=== PATIENT | female | born 1990 | race Caucasian/White ===

== ENCOUNTER 2020-07-11 06:05 | Emergency (ER) | payer BC ==
[2020-07-11 10:28] LABS: Absolute Lymphocytes (CBC) 1.4 K/uL (0.7-4.9); Basophils % 0.1 % (0-1.3); Hematocrit 36.9 % (36.0-45.0); Lymphocytes % 17.9 % (15.3-44.8); MPV 8.5 fL (7.6-11.3); RBC Red Blood Cell Count 4.29 M/uL (3.86-4.86)
[2020-07-11] MEDS ORDERED: NA CHLORIDE 0.9% 500 ML ONE (10:41)
[2020-07-11] MEDS ORDERED: DICYCLOMINE HCL 10 MG CAP ONE (10:41)
[2020-07-11 10:48] LABS: ALT/SGPT 18 U/L (12-78); AST/SGOT 13 U/L (15-37); Albumin 3.5 g/dL (3.4-5.0); Alkaline Phosphatase 107 U/L (45-117); BUN Blood Urea Nitrogen 11 mg/dL (7-18); Bicarbonate 28 mmol/L (21-32); Bilirubin Direct < 0.1 mg/dL (0-0.2); Bilirubin Total 0.3 mg/dL (0.2-1.0); Glucose Level 113 mg/dL (74-106); Lipase 92 U/L (73-393); Potassium 3.6 mmol/L (3.5-5.1); Protein, Total 7.6 g/dL (6.4-8.2); Sodium Level 140 mmol/L (136-145)
[2020-07-11 10:53] LABS: HCG, Quantitative < 1 mIU/mL (1-3)
--- NOTE | 2020-07-11 11:24 | RAD REPORT ---
EXAM DESCRIPTION: CT - Abdomen Pelvis W Contrast - 07/11/2020 11:13 am CLINICAL HISTORY: Abdominal pain COMPARISON: none. TECHNIQUE: Computed axial tomography of the abdomen pelvis was obtained. 100 cc Isovue-300 was admin istered intravenously. Oral contrast was not requested which limits evaluation of bowel. All CT scans are performed using dose optimization technique as appropriate and may include automated exposure control or mA/KV adjustment according to patient size. FINDINGS: The liver, spleen, pancreas, adrenal and kidneys appear unremarkable. There is no evidence of diverticulitis. Normal appendix. Small umbilical hernia contains fat. Mild diastases of the rectus abdominis muscles. No adnexal mass IMPRESSION: No acute abnormality is displayed.
[2020-07-11 11:32] LABS: Urine Blood NEGATIVE (NEG); Urine Glucose NEGATIVE (NEG); Urine Protein NEGATIVE (NEG); Urine Specific Gravity >1.030 (1.005-1.030)
--- NOTE | 2020-07-11 11:36 | ER ---
Nurse's Notes [facility] Name: Shira Kerns Age: 30 yrs Sex: Female : 1990 Arrival Date: 07/11/2020 Time: 06:09 Bed 26 Private MD: Diagnosis: Lower abdominal pain, unspecified Presentation: 07/11 06:36 Chief complaint: Patient states: Bilateral lower abdominal pain for four days, reports sg heavy vaginal bleeding on the Jun with worsening cramps, reports hx of ectopic is concerned this could be repeating. no other symptoms reported for triage at this [facility]. Coronavirus screen: Client denies travel out of the [place] in the last 14 days. Ebola Screen: Patient negative for fever greater than or equal to 101.5 degrees Fahrenheit, and additional compatible Ebola Virus Disease symptoms Patient denies exposure to infectious person. Patient denies travel to an Ebola-affected area in the 21 days before illness onset. No symptoms or risks identified at this time. Initial Sepsis Screen: Does the patient meet any 2 criteria? No. Patient's initial sepsis screen is negative. Does the patient have a suspected source of infection? Yes: Acute abdominal pain. Risk Assessment: Do you want to hurt yourself or someone else? Patient reports no desire to harm self or others. Onset of symptoms was July 11, 2020. Care prior to arrival: None. Transition of care: patient was not received from another setting of care. 06:36 Acuity: SIRI 3 sg 06:36 Method Of Arrival: Ambulatory sg Triage Assessment: 11:00 General: Behavior is calm, cooperative. 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 - Social history:: Smoking status: . Screenin:49 Abuse screen: Denies threats or abuse. Denies injuries from another. Nutritional ec1 screening: No deficits noted. Tuberculosis screening: No symptoms or risk factors identified. Fall Risk No fall in past 12 months (0 pts). Secondary diagnosis (15 points) IV access (20 points). Ambulatory Aid- None/Bed Rest/Nurse Assist (0 pts). Gait- Normal/Bed Rest/Wheelchair (0 pts) Mental Status- Oriented to own ability (0 pts). Assessment: 10:17 General: Appears in no apparent distress. uncomfortable. Pain: Complains of pain in ec1 abdomen Pain currently is 1 out of 10 on a pain scale. Neuro: Level of Consciousness is awake, alert, obeys commands. Cardiovascular: Patient's skin is warm and dry. Respiratory: Airway is patent Respiratory effort is even, unlabored. GI: Abdomen is round obese, Bowel sounds present X 4 quads. Abd is soft X 4 quads Abdomen is tender to palpation in left upper quadrant Reports lower abdominal pain, upper abdominal pain, diarrhea, nausea. : Reports vaginal bleeding that is for last 3-4 days, has stopped. EENT: No deficits noted. Derm: No deficits noted. Musculoskeletal: No deficits noted. Vital Signs: 06:36 BP 112 / 73; Pulse 69; Resp 16; Temp 97.9; Pulse Ox 100% on R/A; Pain 8/10; sg 10:08 BP 112 / 67; Pulse 92; Resp 16 S; Pulse Ox 99% on R/A; Pain 1/10; ec1 ED Course: 06:09 Patient arrived in ED. do 06:36 Arm band placed on. sg 07:27 Triage completed. sg 09:28 Dangelo Vera PA is PHCP. cp 09:28 Ronnell Pacheco MD is Attending Physician. cp 09:55 Giselle Mcadams, FRANCINE is Primary Nurse. ec1 10:17 Patient has correct armband on for positive identification. Placed in gown. Bed in low ec1 position. Side rails up X2. 10:17 Inserted saline lock: 18 gauge in right upper arm, using aseptic technique. Blood ec1 collected. 11:[address] via wheelchair. ec1 11:13 CT Abd/Pelvis - IV Contrast Only In Process Unspecified. EDMS 11:21 Patient taken to an exam room, via wheelchair. ec1 11:49 No provider procedures requiring assistance completed. ec1 11:55 IV discontinued, intact, bleeding controlled. ec1 Administered Medications: 10:29 Drug: Bentyl 20 mg Route: PO; ec1 11:30 Follow up: Response: Pain is decreased ec1 10:29 Drug: NS 0.9% 500 ml Route: IV; Rate: bolus; Site: right upper arm; ec1 11:00 Follow up: Response: No adverse reaction; IV Status: Completed infusion; IV Intake: ec1 500ml Intake: 11:00 IV: 500ml; Total: 500ml. ec1 Outcome: 11:36 Discharge ordered by . cp 11:55 Discharged to home ambulatory. ec1 11:55 Condition: good 11:55 Discharge instructions given to patient, Instructed on discharge instructions, Demonstrated understanding of instructions, follow-up care, medications, Prescriptions given X 1. 11:57 Patient left the ED. ec1 Signatures: Dispatcher [employer] EDSinan Weller, RN RN sg Dangelo Vera PA PA cp [place], Danielle do Cruz, Emily RN RN ec1 Corrections: (The following items were deleted from the chart) 10:30 10:17 GI: Abdomen is round obese, Reports lower abdominal pain, upper abdominal pain, ec1 diarrhea, nausea, ec1
--- NOTE | 2020-07-11 11:36 | EDPHYS ---
Physician Documentation [facility] Name: Shira Kerns Age: 30 yrs Sex: Female : 1990 Arrival Date: 07/11/2020 Time: 06:09 Bed 26 Private MD: ED Physician Ronnell Pacheco HPI: 07/11 09:30 This 30 yrs old Female presents to ER via Ambulatory with complaints of cp Abdominal Pain. 09:30 The patient presents with abdominal pain in the lower abdomen. Onset: The cp symptoms/episode began/occurred 4 day(s) ago. The symptoms do not radiate. Associated signs and symptoms: Pertinent positives: diarrhea, Pertinent negatives: anorexia, constipation, dysuria, fever, vaginal discharge, active vaginal bleeding. The symptoms are described as crampy. 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 - Social history:: Smoking status: . ROS: 09:35 Eyes: Negative for injury, pain, redness, and discharge. cp 09:35 Constitutional: Negative for body aches, chills, fever, poor PO intake. 09:35 ENT: Negative for ear pain, sore throat, difficulty swallowing, difficulty handling secretions. 09:35 Cardiovascular: Negative for chest pain, palpitations. 09:35 Respiratory: Negative for cough, shortness of breath, wheezing. 09:35 Abdomen/GI: Positive for diarrhea, abdominal cramps, Negative for vomiting, constipation, anorexia, black/tarry stool, rectal bleeding. 09:35 Back: Negative for radiated pain. 09:35 : Negative for urinary symptoms, vaginal bleeding, vaginal discharge. Exam: 09:40 Constitutional: The patient appears in no acute distress, alert, awake, non-toxic, well cp developed, well nourished. 09:40 Head/Face: Normocephalic, atraumatic. cp 09:40 Eyes: Periorbital structures: appear normal, Conjunctiva: normal, no exudate, no injection, Sclera: no appreciated abnormality, Lids and lashes: appear normal, bilaterally. 09:40 ENT: External ear(s): are unremarkable, Nose: is normal, Mouth: Lips: moist, Oral mucosa: pink and intact, moist, Posterior pharynx: Airway: no evidence of obstruction, patent. 09:40 Chest/axilla: Inspection: normal, Palpation: is normal, no crepitus, no tenderness. 09:40 Cardiovascular: Rate: normal, Rhythm: regular. 09:40 Respiratory: the patient does not display signs of respiratory distress, Respirations: normal, no use of accessory muscles, no retractions, labored breathing, is not present, Breath sounds: are clear throughout, no decreased breath sounds, rhonchi, no stridor, no wheezing. 09:40 Abdomen/GI: Inspection: abdomen appears normal, Bowel sounds: active, all quadrants, Palpation: soft, in all quadrants, moderate abdominal tenderness, in the right lower quadrant and left lower quadrant, rebound tenderness, is not appreciated, involuntary guarding, is not appreciated. 09:40 Back: CVA tenderness, is absent. 09:40 Skin: cellulitis, is not appreciated, no rash present. Vital Signs: 06:36 BP 112 / 73; Pulse 69; Resp 16; Temp 97.9; Pulse Ox 100% on R/A; Pain 8/10; sg 10:08 BP 112 / 67; Pulse 92; Resp 16 S; Pulse Ox 99% on R/A; Pain 1/10; ec1 MDM: 09:39 Patient medically screened. cp 10:00 Differential diagnosis: appendicitis, Ectopic , gastritis, Pelvic Inflammatory cp Disease, Pyelonephritis, Ureterolithiasis, urinary tract infection. 11:35 Data reviewed: vital signs, nurses notes, lab test result(s), radiologic studies, CT cp scan, and as a result, I will discharge patient. 11:35 Counseling: I had a detailed discussion with the patient and/or guardian regarding: the cp historical points, exam findings, and any diagnostic results supporting the discharge/admit diagnosis, lab results, radiology results, to return to the emergency department if symptoms worsen or persist or if there are any questions or concerns that arise at home. 11:35 Special discussion: Based on the patient's Hx, exam, and Dx evaluation, there is no cp indication for emergent surgery or inpatient Tx. It is understood by the patient/guardian that if the Sx's persist or worsen they need to return immediately for re-evaluation. 07/11 09:22 Order name: Urine Dipstick-Ancillary (obtain specimen); Complete Time: 11:07 cp 07/11 09:22 Order name: Urine Test (obtain specimen); Complete Time: 11:13 cp 07/11 09:41 Order name: Basic Metabolic Panel cp 07/11 09:41 Order name: CBC with Diff cp 07/11 09:41 Order name: Hepatic Function; Complete Time: 10:57 cp 07/11 09:41 Order name: Lipase; Complete Time: 10:57 cp 07/11 09:41 Order name: IV Saline Lock; Complete Time: 10:17 cp 07/11 09:41 Order name: Labs collected and sent; Complete Time: 10:17 cp 07/11 09:41 Order name: Quantitative Hcg; Complete Time: 10:57 cp 07/11 09:41 Order name: Basic Metabolic Panel; Complete Time: 10:57 EDMS 07/11 09:41 Order name: CBC with Automated Diff; Complete Time: 10:57 EDMS 07/11 11:33 Interpretation: Normal except: MCV 85.8; MANJEET% 77.8. cp 07/11 10:58 Order name: CT Abd/Pelvis - IV Contrast Only; Complete Time: 11:32 cp 07/11 11:18 Order name: Urine Dipstick--Ancillary (enter results) bd 07/11 11:18 Order name: Urine --Ancillary (enter results) bd Administered Medications: 10:29 Drug: Bentyl 20 mg Route: PO; ec1 11:30 Follow up: Response: Pain is decreased ec1 10:29 Drug: NS 0.9% 500 ml Route: IV; Rate: bolus; Site: right upper arm; ec1 11:00 Follow up: Response: No adverse reaction; IV Status: Completed infusion; IV Intake: ec1 500ml Disposition: 07/11/20 11:36 Discharged to Home. Impression: Lower abdominal pain, unspecified. - Condition is Stable. - Discharge Instructions: Abdominal Pain, Adult. - Prescriptions for Bentyl 20 mg Oral Tablet - take 1 tablet by ORAL route every 6 hours As needed; 20 tablet. - Medication Reconciliation Form, Thank You Letter, Antibiotic Education, Prescription Opioid Use form. - Follow up: Private Physician; When: 1 - 2 days; Reason: Worsening of condition. - Problem is new. - Symptoms have improved. Addendum: 08/03/2020 02:08 Co-signature as Attending Physician, Ronnell perkins a2 Signatures: Dispatcher [employer] EDSinan Weller RN RN Dangelo Santana PA PA cp Alzahri, Mohammad, MD MD ma2 Giselle Mcadams RN RN ec1 Corrections: (The following items were deleted from the chart) 07/11 11:57 11:36 07/11/2020 11:36 Discharged to Home. Impression: Lower abdominal pain, ec1 unspecified. Condition is Stable. Forms are Medication Reconciliation Form, Thank You Letter, Antibiotic Education, Prescription Opioid Use. Follow up: Private Physician; When: 1 - 2 days; Reason: Worsening of condition. Problem is new. Symptoms have improved. cp :07/10 09:35 Constitutional: Negative for body aches, chills, fever, poor PO intake, cp cp 07/11 22:07/10 09:35 Cardiovascular: Negative for chest pain, palpitations, cp cp 07/11 22:07/10 09:35 Respiratory: Negative for cough, shortness of breath, wheezing, cp cp 07/11 22:07/10 09:35 Abdomen/GI: Positive for diarrhea, abdominal cramps, Negative for vomiting, cp constipation, anorexia, black/tarry stool, rectal bleeding, cp 07/11 22:07/10 09:35 Back: Negative for radiated pain, cp cp 07/11 22:07/10 09:35 : Negative for urinary symptoms, vaginal bleeding, vaginal discharge, cp cp 07/11 22:07/10 09:35 Eyes: Negative for injury, pain, redness, and discharge, cp cp 07/11 22:07/10 09:35 ENT: Negative for ear pain, sore throat, difficulty swallowing, difficulty cp handling secretions, cp 07/11 22:07/10 09:35 All other systems are negative, cp cp
[2020-07-11 12:42] VITALS: TEMP 97.9
[2020-07-11 12:43] VITALS: BP 112/67; O2SAT 99
== END 2020-07-11 11:57 | disposition home or self-care (01) ==
LOC: ER 06:05
DX: R10.30 Lower abdominal pain, unspecified (principal)
CPT/HCPCS: 85025; 80048; 36415; 81025; 80076; 84702; 81003; 83690; 74177; 96360; 99284; Q9967; J7040